=== PATIENT | female | born 1940 ===

== ENCOUNTER → 2018-05-18 | Day surgery (SDC) | payer OTHER ==
[~2018-05-18] MED LIST: ACTONEL75 MG; DIOVAN HCT 160-1 TAB
== END | disposition home or self-care (01) ==
LOC: ADM 05-10 13:00 → AMB-ENDOS 07:51 → CIR.AMB 13:00 → AMB-ENDOS 13:00
DX: K57.30 Diverticulosis of large intestine without perforation or abscess without bleeding (principal); K64.2 Third degree hemorrhoids

== ENCOUNTER 2024-08-14 15:32 | Inpatient (IN) | payer OTHER ==
[~2024-08-14] VITALS: Ht 154.9 cm; Wt 63.0 kg
[2024-08-14] MEDS ORDERED: DIOVAN40 MG PO (15:56)
[2024-08-14] MEDS ORDERED: TOPROL XL25 M1 PO (15:57)
[2024-08-14] MEDS ORDERED: SYNTHROID50 MCG PO (15:57)
[2024-08-14] MEDS ORDERED: ROSUVASTATIN PO (15:58)
--- NOTE | 2024-08-14 15:58 | NUR ---
PACIENTE ESTABLE, REFIERE DOLOR ABDOMINAL, S/V EN PARAMETROS NORMALES, SE ENVIA AL AREA DE OBSERVACION, ESPERA SER REEVALUADA.
[2024-08-14] MEDS ORDERED: FAMOTIDINE/PF 20 MG in 0.9 % SODIUM CHLORIDE 8 ML IV PUSH STA (16:26)
[2024-08-14] MEDS ORDERED: ONDANSETRON HCL 2 MG/ML VIAL IV ONE (16:30)
[2024-08-14] MEDS ORDERED: KETOROLAC TROMETHAMINE 30 MG VIAL IV ONE (16:30)
[2024-08-14] MEDS ORDERED: 0.9 % SODIUM CHLORIDE 1,000 ML IV SCH ×2 (16:30→22:30)
[2024-08-14 17:28] LABS: BASO % 0.2 % (0.1-1.2); EOS # 0.00 (0.04-0.54); EOS % 0.0 % (0.7-7.0); LYMPH # 0.70 (1.18-3.74); LYMPH % 8.3 % (19.3-53.1); MEAN PLATELET VOLUME 9.60 fl (9.4-12.4); MONO # 0.28 (0.24-0.82); MONO % 3.3 % (4.7-12.5); NEUT # 7.46 (1.56-6.13); NEUT % 88.0 % (34.0-71.1); RED CELL DISTRIBUTION WIDTH 12.9 % (11.6-14.4)
--- NOTE | 2024-08-14 17:44 | NUR ---
SE ORIENTA A PACIENTE SOBRE [place] MEDICO, REFIERE ENTENDER.SE REALIZAN MUESTRAS DE LABORATORIO BAJO MEDIDAS ASEPTICAS. SE ADMINISTRAN MEDICAMENTOS CHRISTELLE ORDEN MEDICA. SE [place].
[2024-08-14 17:52] LABS: ALT/SGPT 41.0 U/L (12-78); AST/SGOT 23.0 U/L (15-37); BILIRUBIN TOTAL 0.98 mg/dL (0.3-1.2); BILIRUBIN,CONJUGATED 0.32 mg/dL (0.0-0.2); BUN CREA RATIO 17.0 (7.0-25.0); CREATININE SERUM 0.75 mg/dL (0.55-1.02); GFR 74.16; GLOBULINA 4.5 G/DL (2.4-3.5)
[2024-08-14 17:55] LABS: GLUCOSE FASTING 236.0 mg/dL (65-100); OSMOLALITY SERUM 278.0 MOSM/KG (275-295)
[2024-08-14] MEDS ORDERED: METHYLPREDNISOLONE SOD SUCC 125 MG VIAL IV ONE (19:15)
[2024-08-14] MEDS ORDERED: POTASSIUM CHLORIDE 10 MEQ CAPSULE PO ONE (19:15)
[2024-08-14] MEDS ORDERED: SUCRALFATE 1 G TABLET PO ONE (19:15)
[2024-08-14] MEDS ORDERED: MAG HYDROX/ALUMINUM HYD/SIMETH 30 ML BLIST.PACK PO ONE (19:15)
--- NOTE | 2024-08-14 19:40 | NUR ---
PACIENTE CONTINUA CON VOMITOS Y DOLOR. SE NOTIFICA A EL CUAL ORDENA TRATAMIENTO. SE ORIENTA SOBRE TX MEDICO, REFIERE ENTENDER. SE EJECUTAN ORDENES MEDICAS.
[2024-08-14] MEDS ORDERED: CARAFATE1 GM PO (20:04)
[2024-08-14] MEDS ORDERED: PEPCID AC20 MG PO (20:04)
[2024-08-14] MEDS ORDERED: METOCLOPRAMIDE HCL 10 MG in DEXTROSE 5 % IN WATER 50 ML IV ONE (20:30)
[2024-08-14] MEDS ORDERED: POTASSIUM CHLORIDE IN WATER 100 ML IV SCH (22:27)
[2024-08-14] MEDS ORDERED: FAMOTIDINE/PF 20 MG in 0.9 % SODIUM CHLORIDE 8 ML IV PUSH SCH (22:28)
[2024-08-14] MEDS ORDERED: ACETAMINOPHEN 500 MG GEL..CAP PO PRN (22:30)
[2024-08-14] MEDS ORDERED: ENALAPRILAT DIHYDRATE 1.25 MG/ML VIAL IV PRN (22:30)
[2024-08-14] MEDS ORDERED: ONDANSETRON HCL 4 MG in 0.9 % SODIUM CHLORIDE 50 ML IV PRN (22:30)
[2024-08-15 04:32] VITALS: BP 157/90; O2SAT 95
[2024-08-15 07:32] LABS: ALT/SGPT 33.0 U/L (12-78); AST/SGOT 23.0 U/L (15-37); BILIRUBIN TOTAL 1.06 mg/dL (0.3-1.2); BUN CREA RATIO 24.0 (7.0-25.0); CREATININE SERUM 0.58 mg/dL (0.55-1.02); GFR 99.04; GLOBULINA 4.0 G/DL (2.4-3.5); GLUCOSE FASTING 189.0 mg/dL (65-100); OSMOLALITY SERUM 276.0 MOSM/KG (275-295)
[2024-08-15 08:00] VITALS: BP 172/92; O2SAT 95
[2024-08-15] MEDS ORDERED: METOPROLOL SUCCINATE 25 MG TAB.SR.24H PO SCH (09:00)
[2024-08-15 09:10] LABS: URINE APPEARANCE Clear; URINE BACTERIA 265.1 uL (0.0-1933); URINE BILIRRUBIN Negative (NEGATIVE); URINE BLOOD Moderate; URINE COLOR Yellow; URINE EPITHELIAL CELLS 13.3 uL (0.0-38.8); URINE LEUKOCYTE Negative; URINE NITRATE Negative; URINE RBC 98.7 uL (0.0-20.8); URINE UROBILINOGEN 0.2 E.U./dl; URINE WBC 25.9 uL (0.0-23.2)
[2024-08-15 09:22] LABS: URINE CAST 0.29 uL (0.0-1.40); URINE GLUCOSE >=1000 MG/DL (NEGATIVE); URINE KETONE 40 (NEGATIVE); URINE PROTEIN 300 (NEGATIVE)
[2024-08-15] MEDS ORDERED: PANTOPRAZOLE SODIUM 40 MG/VIAL VIAL IV SCH (09:36)
[2024-08-15 16:45] VITALS: BP 160/100; O2SAT 96
[2024-08-15] MEDS ORDERED: POTASSIUM PHOS,M-BASIC-D-BASIC 15 MM in 0.9 % SODIUM CHLORIDE 250 ML IV ONE (17:30)
[2024-08-15] MEDS ORDERED: PIPERACILLIN/TAZOBACTAM SODIUM 3.375 GM in DEXTROSE 5 % IN WATER 100 ML IV SCH (18:03)
[2024-08-15] MEDS ORDERED: KETOROLAC TROMETHAMINE 30 MG VIAL IV PRN (18:15)
[2024-08-15] MEDS ORDERED: HYDROCORTISONE ACETATE 25 MG/SUPP.RECT SUPP.RECT RECTAL NR (19:00)
[2024-08-15] MEDS ORDERED: ONDANSETRON HCL 4 MG in 0.9 % SODIUM CHLORIDE 50 ML IV PRN (20:18)
[2024-08-16 00:34] VITALS: BP 137/83; O2SAT 97
[2024-08-16] MEDS ORDERED: HYDROCORTISONE ACETATE 25 MG/SUPP.RECT SUPP.RECT RECTAL SCH (05:00)
[2024-08-16 09:00] VITALS: BP 142/92; O2SAT 96
[2024-08-16] MEDS ORDERED: DIATRIZOATE MEGLUMINE, SODIUM 30 ML BOTTLE PO NR (12:15)
[2024-08-16] MEDS ORDERED: MORPHINE SULFATE 2 MG/ML CARTRIDGE IV PRN (12:15)
[2024-08-16 12:30] LABS: BASO % 0.4 % (0.1-1.2); EOS # 0.00 (0.04-0.54); EOS % 0.0 % (0.7-7.0); LYMPH # 0.70 (1.18-3.74); LYMPH % 4.2 % (19.3-53.1); MEAN PLATELET VOLUME 11.00 fl (9.4-12.4); MONO # 2.22 (0.24-0.82); NEUT # 13.49 (1.56-6.13); NEUT % 81.8 % (34.0-71.1); RED CELL DISTRIBUTION WIDTH 12.7 % (11.6-14.4)
[2024-08-16 12:38] LABS: MONO % 13.4 % (4.7-12.5)
[2024-08-16 13:08] LABS: ALT/SGPT 31.0 U/L (12-78); AST/SGOT 27.0 U/L (15-37); BILIRUBIN TOTAL 1.26 mg/dL (0.3-1.2); BUN CREA RATIO 30.0 (7.0-25.0); CREATININE SERUM 0.5 mg/dL (0.55-1.02); GFR 117.54; GLOBULINA 3.3 G/DL (2.4-3.5); GLUCOSE FASTING 122.0 mg/dL (65-100); OSMOLALITY SERUM 274.0 MOSM/KG (275-295)
[2024-08-16] MEDS ORDERED: POTASSIUM PHOS,M-BASIC-D-BASIC 3 MM/ML VIAL IV ONE (15:30)
[2024-08-16 16:00] VITALS: BP 96/68; O2SAT 96
[2024-08-16] MEDS ORDERED: POTASSIUM CHLORIDE IN WATER 40 MEQ/100 ML PIGGYBAG IV NR (20:00)
[2024-08-17 02:04] VITALS: BP 126/79; O2SAT 97
[2024-08-17 08:28] LABS: ALT/SGPT 30.0 U/L (12-78); AST/SGOT 31.0 U/L (15-37); BILIRUBIN TOTAL 1.05 mg/dL (0.3-1.2); BUN CREA RATIO 41.0 (7.0-25.0); CREATININE SERUM 0.59 mg/dL (0.55-1.02); GFR 97.11; GLOBULINA 3.4 G/DL (2.4-3.5); GLUCOSE FASTING 84.0 mg/dL (65-100); OSMOLALITY SERUM 273.0 MOSM/KG (275-295)
[2024-08-17 09:18] VITALS: BP 130/90; O2SAT 96
[2024-08-17 16:00] VITALS: BP 160/90; O2SAT 98
[2024-08-17] MEDS ORDERED: POTASSIUM CHLORIDE 20MEQ/100ML H2O PB IV ONE (18:00)
[2024-08-18 00:55] VITALS: BP 137/76; O2SAT 97
[2024-08-18 07:50] LABS: BUN CREA RATIO 52.0 (7.0-25.0); CREATININE SERUM 0.66 mg/dL (0.55-1.02); GFR 85.32; GLUCOSE FASTING 82.0 mg/dL (65-100); OSMOLALITY SERUM 284.0 MOSM/KG (275-295)
[2024-08-18 08:00] VITALS: BP 134/86; O2SAT 96
[2024-08-18 16:00] VITALS: BP 161/94; O2SAT 97
[2024-08-18] MEDS ORDERED: POTASSIUM PHOS,M-BASIC-D-BASIC 15 MM in 0.9 % SODIUM CHLORIDE 250 ML IV ONE (22:15)
[2024-08-18] MEDS ORDERED: MAGNESIUM SULFATE IN WATER 50 ML IV ONE (22:15)
[2024-08-19] VITALS: BP 126/84; O2SAT 97
[2024-08-19 08:00] VITALS: BP 106/74; O2SAT 96
[2024-08-19 08:26] LABS: BASO % 0.7 % (0.1-1.2); EOS # 0.10 (0.04-0.54); EOS % 0.6 % (0.7-7.0); LYMPH # 1.21 (1.18-3.74); LYMPH % 7.2 % (19.3-53.1); MEAN PLATELET VOLUME 10.70 fl (9.4-12.4); MONO # 2.33 (0.24-0.82); NEUT # 12.77 (1.56-6.13); NEUT % 75.4 % (34.0-71.1); RED CELL DISTRIBUTION WIDTH 13.7 % (11.6-14.4)
[2024-08-19 08:30] LABS: MONO % 13.8 % (4.7-12.5)
[2024-08-19 09:10] LABS: ALT/SGPT 18.0 U/L (12-78); AST/SGOT 13.0 U/L (15-37); BILIRUBIN TOTAL 1.05 mg/dL (0.3-1.2); BUN CREA RATIO 63.0 (7.0-25.0); CREATININE SERUM 0.6 mg/dL (0.55-1.02); GFR 95.24; GLOBULINA 3.3 G/DL (2.4-3.5); GLUCOSE FASTING 85.0 mg/dL (65-100); OSMOLALITY SERUM 295.0 MOSM/KG (275-295)
[2024-08-19 16:00] VITALS: BP 133/74; O2SAT 98
[2024-08-20 01:23] VITALS: BP 174/83; O2SAT 96
[2024-08-20 08:00] VITALS: BP 145/95; O2SAT 97
[2024-08-20 08:22] LABS: BASO % 0.9 % (0.1-1.2); EOS # 0.01 (0.04-0.54); EOS % 0.1 % (0.7-7.0); LYMPH # 1.89 (1.18-3.74); LYMPH % 14.3 % (19.3-53.1); MEAN PLATELET VOLUME 10.60 fl (9.4-12.4); MONO # 1.89 (0.24-0.82); NEUT # 8.71 (1.56-6.13); NEUT % 65.8 % (34.0-71.1); RED CELL DISTRIBUTION WIDTH 14.1 % (11.6-14.4)
[2024-08-20 09:00] LABS: BAND MAN 4.0 %; LYMPHOCYTE MAN 20.0 %; MONO % 14.3 % (4.7-12.5); MONOCYTE MAN 4.0 %; NEUTROPHILS MAN 70.0 %
[2024-08-20 09:15] LABS: ALT/SGPT 19.0 U/L (12-78); AST/SGOT 15.0 U/L (15-37); BILIRUBIN TOTAL 1.06 mg/dL (0.3-1.2); BUN CREA RATIO 58.0 (7.0-25.0); CREATININE SERUM 0.57 mg/dL (0.55-1.02); GFR 101.05; GLOBULINA 3.5 G/DL (2.4-3.5); GLUCOSE FASTING 70.0 mg/dL (65-100); OSMOLALITY SERUM 298.0 MOSM/KG (275-295)
[2024-08-20 15:10] LABS: ob POSITIVE (NEGATIVE)
[2024-08-20 18:59] VITALS: BP 153/69; O2SAT 97
[2024-08-20] MEDS ORDERED: NIFEDIPINE 30 MG TAB.SA.OSM PO SCH (19:38)
[2024-08-20] MEDS ORDERED: POLYETHYLENE GLYCOL 3350 17 GM BLIST.PACK PO SCH (19:44)
[2024-08-20] MEDS ORDERED: DEXTROSE 5 % IN WATER 1,000 ML IV SCH (19:45)
[2024-08-21 01:22] VITALS: BP 159/97; O2SAT 97
[2024-08-21 06:20] LABS: BASO % 0.1 % (0.1-1.2); EOS # 0.07 (0.04-0.54); EOS % 0.5 % (0.7-7.0); LYMPH # 2.03 (1.18-3.74); LYMPH % 13.4 % (19.3-53.1); MEAN PLATELET VOLUME 10.70 fl (9.4-12.4); MONO # 2.04 (0.24-0.82); NEUT # 10.16 (1.56-6.13); NEUT % 67.1 % (34.0-71.1); RED CELL DISTRIBUTION WIDTH 14.4 % (11.6-14.4)
[2024-08-21 06:38] LABS: MONO % 13.5 % (4.7-12.5)
[2024-08-21 07:28] LABS: ALT/SGPT 19.0 U/L (12-78); AST/SGOT 20.0 U/L (15-37); BILIRUBIN TOTAL 0.82 mg/dL (0.3-1.2); BUN CREA RATIO 57.0 (7.0-25.0); CREATININE SERUM 0.49 mg/dL (0.55-1.02); GFR 120.32; GLOBULINA 3.1 G/DL (2.4-3.5); GLUCOSE FASTING 147.0 mg/dL (65-100); OSMOLALITY SERUM 291.0 MOSM/KG (275-295)
[2024-08-21 09:27] VITALS: BP 130/60
[2024-08-21] MEDS ORDERED: POTASSIUM PHOS,M-BASIC-D-BASIC 18 MM in 0.9 % SODIUM CHLORIDE 500 ML IV ONE (11:00)
[2024-08-21] MEDS ORDERED: KETOROLAC TROMETHAMINE 30 MG VIAL IV PRN (13:15)
[2024-08-21 17:46] VITALS: BP 138/88; O2SAT 96
[2024-08-21] MEDS ORDERED: MEROPENEM 500 MG/VIAL VIAL IV SCH (18:00)
[2024-08-22 02:08] VITALS: BP 108/61; O2SAT 95
[2024-08-22 07:06] LABS: BASO % 0.6 % (0.1-1.2); EOS # 0.13 (0.04-0.54); EOS % 0.8 % (0.7-7.0); LYMPH # 2.10 (1.18-3.74); LYMPH % 12.9 % (19.3-53.1); MEAN PLATELET VOLUME 10.80 fl (9.4-12.4); MONO # 1.29 (0.24-0.82); MONO % 8.0 % (4.7-12.5); NEUT # 11.78 (1.56-6.13); NEUT % 72.6 % (34.0-71.1); RED CELL DISTRIBUTION WIDTH 14.6 % (11.6-14.4)
[2024-08-22 07:20] LABS: ERYTHROCYTE SEDIMENTATION RATE 58 mm/hr (0-30)
[2024-08-22 07:57] LABS: ALT/SGPT 18.0 U/L (12-78); AST/SGOT 18.0 U/L (15-37); BILIRUBIN TOTAL 0.76 mg/dL (0.3-1.2); BUN CREA RATIO 45.0 (7.0-25.0); CREATININE SERUM 0.38 mg/dL (0.55-1.02); GFR 161.34; GLOBULINA 3.5 G/DL (2.4-3.5); GLUCOSE FASTING 105.0 mg/dL (65-100); OSMOLALITY SERUM 281.0 MOSM/KG (275-295)
[2024-08-22 08:05] LABS: BAND MAN 6.0 %; EOSINOPHIL MAN 3.0 %; LYMPHOCYTE MAN 5.0 %; MONOCYTE MAN 12.0 %; NEUTROPHILS MAN 73.0 %
[2024-08-22] MEDS ORDERED: POTASSIUM PHOS,M-BASIC-D-BASIC 15 MM in 0.9 % SODIUM CHLORIDE 250 ML IV ONE (09:30)
[2024-08-22 10:25] VITALS: BP 130/85; O2SAT 96
[2024-08-22 13:01] LABS: URINE APPEARANCE Clear; URINE BILIRRUBIN Negative (NEGATIVE); URINE BLOOD Small; URINE COLOR Yellow; URINE GLUCOSE Negative (NEGATIVE); URINE KETONE Trace (NEGATIVE); URINE LEUKOCYTE Moderate; URINE NITRATE Negative; URINE PROTEIN Trace (NEGATIVE); URINE UROBILINOGEN 0.2 E.U./dl
[2024-08-22 13:04] LABS: URINE BACTERIA 11.9 uL (0.0-1933); URINE CAST 0.43 uL (0.0-1.40); URINE EPITHELIAL CELLS 14.3 uL (0.0-38.8); URINE RBC 103.8 uL (0.0-20.8); URINE WBC 10.6 uL (0.0-23.2)
[2024-08-22 13:19] LABS: URINE YEAST FEW /hpf
[2024-08-22 16:57] VITALS: BP 115/79; O2SAT 99
[2024-08-23 02:01] VITALS: BP 101/61; O2SAT 95
[2024-08-23 08:56] VITALS: BP 100/70
[2024-08-23] MEDS ORDERED: FLUCONAZOLE IN NACL,ISO-OSM 200 MG/100 ML PIGGYBAG IV NR (17:00)
[2024-08-23 17:25] VITALS: BP 130/90; O2SAT 97
[2024-08-23] MEDS ORDERED: MELATONIN 5 MG TABLET PO SCH (21:00)
[2024-08-24 02:29] VITALS: BP 103/64; O2SAT 96
[2024-08-24 09:02] LABS: BASO % 0.2 % (0.1-1.2); EOS # 0.12 (0.04-0.54); EOS % 1.0 % (0.7-7.0); LYMPH # 1.91 (1.18-3.74); LYMPH % 15.7 % (19.3-53.1); MEAN PLATELET VOLUME 10.90 fl (9.4-12.4); MONO # 0.99 (0.24-0.82); MONO % 8.1 % (4.7-12.5); NEUT # 8.93 (1.56-6.13); NEUT % 73.6 % (34.0-71.1); RED CELL DISTRIBUTION WIDTH 14.6 % (11.6-14.4)
[2024-08-24 09:52] LABS: ALT/SGPT 17.0 U/L (12-78); AST/SGOT 18.0 U/L (15-37); BILIRUBIN TOTAL 0.82 mg/dL (0.3-1.2); BUN CREA RATIO 11.0 (7.0-25.0); CREATININE SERUM 0.38 mg/dL (0.55-1.02); GFR 161.34; GLOBULINA 3.2 G/DL (2.4-3.5); GLUCOSE FASTING 89.0 mg/dL (65-100); OSMOLALITY SERUM 278.0 MOSM/KG (275-295)
[2024-08-24 09:55] VITALS: BP 109/58
[2024-08-24] MEDS ORDERED: FLUCONAZOLE IN NACL,ISO-OSM 50 ML IV SCH (12:00)
[2024-08-24] MEDS ORDERED: FLUCONAZOLE IN NACL,ISO-OSM 2 MG/ML ML IV SCH (17:00)
[2024-08-24] MEDS ORDERED: LACTOBACILLUS ACIDOPHILUS 1 CAP CAP PO SCH (17:00)
[2024-08-24] MEDS ORDERED: FLUCONAZOLE IN NACL,ISO-OSM 100 MG/50 ML PIGGYBAG IV SCH (17:00)
[2024-08-24] MEDS ORDERED: SILVER SULFADIAZINE TOP SCH (17:00)
[2024-08-24] MEDS ORDERED: CLOTRIMAZOLE/BETAMETHASONE DIP 15 GM TUBE TOP SCH (17:00)
[2024-08-24] MEDS ORDERED: ZINC OXIDE TOP SCH (17:00)
[2024-08-24 17:48] VITALS: BP 113/78
[2024-08-24] MEDS ORDERED: FAMOTIDINE/PF 20 MG/2 ML VIAL IV PUSH STA (20:36)
[2024-08-24] MEDS ORDERED: DIPHENHYDRAMINE HCL 25 MG CAPSULE PO SCH (21:00)
[2024-08-25 00:26] VITALS: BP 98/77
[2024-08-25 08:11] LABS: BASO % 0.2 % (0.1-1.2); EOS # 0.16 (0.04-0.54); EOS % 1.3 % (0.7-7.0); LYMPH # 2.25 (1.18-3.74); LYMPH % 18.2 % (19.3-53.1); MEAN PLATELET VOLUME 10.60 fl (9.4-12.4); MONO # 1.02 (0.24-0.82); MONO % 8.2 % (4.7-12.5); NEUT # 8.78 (1.56-6.13); NEUT % 71.0 % (34.0-71.1); RED CELL DISTRIBUTION WIDTH 14.7 % (11.6-14.4)
[2024-08-25] MEDS ORDERED: SUCRALFATE 1 G TABLET PO SCH (09:00)
[2024-08-25] MEDS ORDERED: PANTOPRAZOLE SODIUM 40 MG/VIAL VIAL IV PUSH SCH (09:00)
[2024-08-25 09:02] VITALS: BP 110/78
[2024-08-25 17:59] VITALS: BP 110/80
[2024-08-25] MEDS ORDERED: FAMOTIDINE/PF 20 MG/2 ML VIAL IV PUSH SCH (21:00)
[2024-08-26 00:33] VITALS: BP 90/56
[2024-08-26 06:33] LABS: BASO % 0.2 % (0.1-1.2); EOS # 0.23 (0.04-0.54); EOS % 2.7 % (0.7-7.0); LYMPH # 2.07 (1.18-3.74); LYMPH % 24.6 % (19.3-53.1); MEAN PLATELET VOLUME 11.50 fl (9.4-12.4); MONO # 0.87 (0.24-0.82); MONO % 10.4 % (4.7-12.5); NEUT # 5.14 (1.56-6.13); NEUT % 61.3 % (34.0-71.1); RED CELL DISTRIBUTION WIDTH 14.6 % (11.6-14.4)
[2024-08-26 07:40] LABS: ALT/SGPT 16.0 U/L (12-78); AST/SGOT 18.0 U/L (15-37); BILIRUBIN TOTAL 1.17 mg/dL (0.3-1.2); BUN CREA RATIO 16.0 (7.0-25.0); CREATININE SERUM 0.31 mg/dL (0.55-1.02); GFR 204.07; GLOBULINA 3.2 G/DL (2.4-3.5); GLUCOSE FASTING 120.0 mg/dL (65-100); OSMOLALITY SERUM 276.0 MOSM/KG (275-295)
[2024-08-26] MEDS ORDERED: MAGNESIUM SULFATE/D5W 100 ML IV NR (08:45)
[2024-08-26] MEDS ORDERED: POTASSIUM PHOS,M-BASIC-D-BASIC 18 MM in 0.9 % SODIUM CHLORIDE 500 ML IV NR (10:00)
[2024-08-26 10:11] VITALS: BP 91/62; O2SAT 97
[2024-08-26] MEDS ORDERED: ANUCORT-HC25 MG RECTAL (17:27)
[2024-08-26] MEDS ORDERED: FLUCONAZOLE100 MG PO (17:31)
[2024-08-26 18:57] VITALS: BP 130/80
== END 2024-08-26 19:00 | disposition home or self-care (01) | DRG 641 ==
LOC: ER 16:40 → SURH 22:30 → SEC-K 22:30 → SURG 22:30 → SEC-K 22:30 → SURG 08-15 01:02 → SURH 08-17 11:35 → MEDJ 08-20 11:56
PROVIDERS: General Practice; Internal Medicine; Internal Medicine Infectious Disease; ADMIT Internal Medicine; ATTEND Internal Medicine
PROC: BW21ZZZ Computerized Tomography (CT Scan) of Abdomen and Pelvis (ICD-10-PCS; principal; 2024-08-14)
PROC: BW21YZZ Computerized Tomography (CT Scan) of Abdomen and Pelvis using Other Contrast (ICD-10-PCS; 2024-08-16)
DX: E87.6 Hypokalemia (principal); K56.600 Partial intestinal obstruction, unspecified as to cause; N39.0 Urinary tract infection, site not specified; D72.828 Other elevated white blood cell count; K57.90 Diverticulosis of intestine, part unspecified, without perforation or abscess without bleeding; E03.9 Hypothyroidism, unspecified; I10 Essential (primary) hypertension; K62.89 Other specified diseases of anus and rectum